=== PATIENT | female | born 1985 | race African-American/Black ===

== ENCOUNTER 2017-01-12 16:27 | Emergency (ER) | payer SELFPAY ==
[~2017-01-12 16:27] MED LIST: ATARAX10 MG PO; FERROUS SULFATE1 TAB PO; IRON1 TAB; NORCO 5/325 TAB1 TAB PO; PREDNISONE10 MG PO; PRENATAL VITAMI PO; PRENATAL1 EACH; VISTARIL50 MG PO
[2017-01-12 17:34] LABS: BASO % 0.6 % (0-2); EOS % 0.9 % (0-7); EOSINOPHIL ABSOLUTE COUNT 0.1 tho/cmm (0.0-0.7); HCT-HEMATOCRIT 30.2 % (34.0-49.0); HGB-HEMOGLOBIN 9.4 gm/dl (12.0-15.5); IMMATURE GRANULOCYTES ABSOLUTE 0.01 tho/cmm (0-0.03); IMMATURE GRANULOCYTES PERCENT 0.2 % (0-0.3); LYMPH % 40.2 % (20-45); LYMPH ABSOLUTE COUNT 2.2 tho/cmm (0.8-4.5); MCH (MEAN CORPUSCULAR HGB) 25.8 pg (28.0-32.0); MCHC MEAN CORPUSCULAR HGB CONC 31.1 % (32.0-36.0); MCV (MEAN CELL VOLUME) 82.7 fl (82.0-96.0); MEAN PLATELET VOLUME 10.6 cmc (9.4-12.4); MONO % 10.3 % (0-12); MONOCYTE ABSOLUTE COUNT 0.6 tho/cmm (0.0-1.2); NEUTROPHIL ABSOLUTE COUNT 2.6 tho/cmm (1.6-8.0); NEUTROPHIL-AUTOMATED 2.6 tho/cmm (1.6-8.0); NEUTROPHILS % 47.8 % (40-80); PLATELET COUNT 215 tho/cmm (150-450); RED BLOOD COUNT 3.65 mil/cmm (4.00-5.20); RED CELL DISTRIBUTION WIDTH 15.1 % (12.4-16.4); WHITE BLOOD COUNT 5.5 tho/cmm (4.0-10.0)
[2017-01-12 17:55] LABS: ANION GAP 7 mmol/L (0-20); BLOOD UREA NITROGEN 15 mg/dl (6-24); CALCIUM 8.4 mg/dl (8.5-10.5); CARBON DIOXIDE-VENOUS 30 mmol/L (22-32); CHLORIDE 108 mmol/l (96-110); CREATININE 0.94 mg/dl (0.50-1.10); GLUCOSE 112 mg/dL (70-110); POTASSIUM 4.1 mmol/L (3.7-5.1); SODIUM 141 mmol/L (135-145); eGFR VALUE FOR BLACK >90 mL/Min
[2017-01-12] MEDS ORDERED: NAPROSYN500 M1 PO (18:17)
== END 2017-01-12 18:29 ==
LOC: EDMED 16:27
PROVIDERS: Physician Assistant
DX: R07.9 Chest pain, unspecified (principal); Z98.890 Other specified postprocedural states